=== PATIENT | female | born 1990 | race Two or more races ===

== ENCOUNTER 2017-04-05 10:36 | Emergency (ER) | payer OTHER ==
--- NOTE | 2017-04-05 11:58 | RAD ---
Chest, 2 views, 04/05/2017: History: Chest pain The heart size and pulmonary vascularity are normal. The lungs are clear. There is no evidence of pleural fluid. IMPRESSION: No acute cardiopulmonary abnormality is detected.
[2017-04-05] MEDS ORDERED: PRED20TA PO (12:19)
--- NOTE | 2017-04-05 12:19 | PHYS DOC ---
Past Medical History Past Medical History: Depression, Migraines Additional Past Medical Histor: BLOOD TRANSFUSION AFTER C- SECTION Past Surgical History: Hysterectomy Alcohol Use: None Drug Use: None Adult General Chief Complaint Chief Complaint: CHEST WALL PAIN HPI HPI Patient is a 26 year old female brought to the ED by her with the complaint of left upper chest wall pain for about 1 month. She's had it pretty much every day for the last month. She doesn't believe she had any injury prior to the onset. She's had no fever or chills. No cough. She does not do any significant lifting. The patient admits to occasional shortness of air, "when I feel tension". Patient has not seen her doctor for this or had any other visit to an emergency department. Patient denies use of contraception or hormones. Patient had a hysterectomy due to severe bleeding. Medical history positive for migraines, nothing else PCP Dr. Gonzalez Review of Systems Review of Systems Constitutional: Denies fever or chills [] Respiratory: As in history of present illness Cardiovascular: As in history of present illness GI: Denies abdominal pain, nausea, vomiting, bloody stools or diarrhea [] : Denies dysuria or hematuria [] Musculoskeletal: Denies back pain or joint pain [] Integument: Denies rash or skin lesions [] Neurologic: Denies headache Allergies Allergies Allergies Coded Allergies Type Severity Reaction Last Updated Verified No Known Drug Allergies 08/11/15 No Physical Exam Physical Exam Constitutional: Well developed, well nourished, no acute distress, non-toxic appearance. Alert, pulse ox on room air 100%, nontoxic and cardiac, not dyspneic. HENT: Normocephalic, atraumatic, bilateral external ears normal, nose normal. [ ] Eyes: conjunctiva normal, no discharge. [] Neck: Normal range of motion, no stridor. [] Cardiovascular:Heart rate regular rhythm, no murmur [] Lungs & Thorax: Bilateral breath sounds clear to auscultation [] Skin: Warm, dry, no erythema, no rash. [] Extremities: No tenderness, no cyanosis, no clubbing, ROM intact, no edema. [] Neurologic: Alert and oriented X 3, normal motor function, no focal deficits noted. [] Current Patient Data Vital Signs Vital Signs Date Time Temp Pulse Resp B/P (MAP) Pulse Ox O2 Delivery O2 Flow Rate FiO2 04/05/17 12:43 76 14 98/60 (73) 100 Room Air 04/05/17 11:03 98.0 98.0 EKG EKG 12-lead EKG read by me. Sinus rhythm. Heart rate 72. There are no acute ST or T wave changes indicative of ischemia or infarction. No QRS abnormalities. No rhythm disturbances. 1055[] Radiology/Procedures Radiology/Procedures Two-view chest x-ray read by me. No acute findings.[] Course & Med Decision Making Course & Med Decision Making Pertinent Labs and Imaging studies reviewed. (See chart for details) 26-year-old female presents with one month of left upper chest pain with no clear-cut cause. She is not really noting any exacerbating or alleviating factors. She has normal vital signs and a pulse ox of 100%. She has no risk factors for PE. With the length of this pain, it does not seem likely. Her chest x-ray was negative for cardiopulmonary finding, I did notice a lot of stool and gas in her transverse colon. I discussed with the patient and her that we will treat for 2 possible etiologies of her discomfort. #1, we will try giving her a laxative. The patient's states that she is frequently constipated, patient argues that she doesn't believe she is. Anyway, we will try treating her with a laxative to see if that helps, then we'll also try a short course of prednisone for anti-inflammatory. I discussed with them that they could try that laxative for one or 2 days first and if no chest pain, she could then try the prednisone. I encouraged follow-up with primary care physician. See instructions for plan. [] Dragon Disclaimer Dragon Disclaimer This electronic medical record was generated, in whole or in part, using a voice recognition dictation system. Departure Departure Impression: Primary Impression: Left-sided chest wall pain Disposition: 01 HOME, SELF-CARE Condition: STABLE Referrals: JESE TAVERA MD (PCP) Patient Instructions: Chest Wall Pain, [id number] Additional Instructions: Today in the emergency department, EKG and chest x-ray are both normal. This does not tell us what is causing your pain, but is reassuring to tell us many things that it is not. As we discussed, we will try treating for 2 things and see if that makes you better. First of all, sometimes constipation with "gas pain" can cause this type of pain. I recommend that you purchase magnesium citrate and drink one half bottle every 6-8 hours until you have had good "results", and see if that helps. If that helps, try to make sure that you stay regular by eating plenty of fiber and using laxatives such as milk of magnesia occasionally as needed. Secondly, we will try treating with a anti-inflammatory medication in case it is some type of inflammation. Prednisone as directed. If this helps but then it comes back after the prednisone is finished, see your doctor for recheck. Scripts Prednisone (PREDNISONE) 20 Mg Tablet 40 MG PO DAILY for chest pain, anti-inflammatory for 5 Days, #10 TAB Prov: ANDREW FLOREZ MD 04/05/17 ANDREW FLOREZ MD Apr 05, 2017 12:19
[2017-04-05 12:43] VITALS: BP 98/60
--- NOTE | 2017-04-06 12:46 | EKG ---
[facility] [address] [place] [address] Test Date: 2017-04-05 Test Time: 10:55:41 Pat Name: MARIA ALEJANDRA AGUDELO Department: Room: Gender: F [employer]: : [id number] Requested By: ANDREW FLOREZ Order Number: [id number] Reading MD: Measurements Intervals Joseph Rate: 72 P: 23 HI: 146 QRS: 44 QRSD: 78 T: 20 QT: 364 QTc: 400 Interpretive Statements SINUS RHYTHM NO SPECIFIC ECG ABNORMALITIES RI6.01 No previous ECG available for comparison
== END 2017-04-05 12:44 | disposition home or self-care (01) ==
LOC: ER 10:36
DX: R07.89 Other chest pain (principal); G43.909 Migraine, unspecified, not intractable, without status migrainosus; F32.9 Major depressive disorder, single episode, unspecified; Z90.710 Acquired absence of both cervix and uterus
CPT/HCPCS: 71020; 93005; 99284

== ENCOUNTER 2017-07-14 20:55 | Emergency (ER) | payer OTHER ==
[2017-07-14] MEDS: diphenhydrAMINE HCL 25 MG CAPSULE PO (21:35)
[2017-07-14] MEDS: FAMOTIDINE 20 MG TABLET. PO (21:35)
[2017-07-14] MEDS: predniSONE 20 MG TABLET PO (21:36)
[2017-07-14] MEDS: SUMAtriptan SUCCINATE 25 MG TABLET PO (21:38)
== END 2017-07-14 21:47 | disposition home or self-care (01) ==
LOC: ER 20:55
DX: G56.01 Carpal tunnel syndrome, right upper limb (principal); L25.9 Unspecified contact dermatitis, unspecified cause; G43.909 Migraine, unspecified, not intractable, without status migrainosus
CPT/HCPCS: 29125; 99284-25; J7512; Q0163